=== PATIENT | male | born 2005 | race Hispanic/Latino ===

== ENCOUNTER 2024-02-26 20:28 | Emergency (ER) | payer SELFPAY ==
[2024-02-27] MEDS ORDERED: HYDROcodone/Acetaminophen 5/325 mg Tablet ONE (00:42)
[2024-02-27] MEDS ORDERED: fentaNYL 50 mcg/mL 1 mL Vial ONE ×2 (01:07→02:21)
[2024-02-27] MEDS ORDERED: Midazolam HCl 2 mg/2 ml Vial ONE (02:21)
== END 2024-02-27 03:43 | disposition home or self-care (01) ==
LOC: ERS 20:28
DX: S43.015A Anterior dislocation of left humerus, initial encounter (principal); W19.XXXA Unspecified fall, initial encounter
CPT/HCPCS: 23650; 96374; 96375; 96376; 99152; J2250; J3010